=== PATIENT | male | born 1985 | race Caucasian/White ===

== ENCOUNTER → 2017-07-15 13:15 | Outpatient (CLI) | payer SELFPAY ==
--- NOTE | 2017-07-15 13:15 | VAS_PTH ---
PATIENT: THAI GODINEZ LOC: [facility] U#:[id number] AGE/SX: 39/M ROOM: RE07/15/[address]: Dr. Virgil Martin MD : [id number] BED: DIS: SPEC #: [id number] RECD: 07/15/17 17:03 STATUS: ANGEL SAGRARIO #: [id number] MARTHA: 07/15/17 13:[address]: Virgil Martin DEPT: SURGICAL PATHOLOGY RECD BY: Justus Ignacio Tissues: A - Vas deferens, NOS B - Vas deferens, NOS Procedures: Surgery Specimen Level II HEADER OPERATION: Vasectomy PRE-OP DIAGNOSIS: Sterilization TISSUE SUBMITTED: A ? Right vas deferens, B ? Left vas deferens MICROSCOPIC DIAGNOSIS A. Right vas deferens, vasectomy: Completely transected segment of vas deferens, no pathologic diagnosis. B. Left vas deferens, vasectomy: Completely transected segment of vas deferens, no pathologic diagnosis. SJ:raul 07/19/17 MICROSCOPIC DESCRIPTION Slides are reviewed. GROSS DESCRIPTION A - Received is one container designated right vas deferens. The specimen consists of a cylindrical segment of pink-gonzales soft tissue. The fragment measures 1.1 cm in length and 0.2 cm in maximum diameter. Serial sections do not reveal gross lesions. The specimen is serially sectioned and totally submitted in one cassette. B - Received is one container designated left vas deferens. The specimen consists of a cylindrical segment of pink-gonzales soft tissue. The fragment measures 1.5 cm in length and 0.2 cm in maximum diameter. Serial sections do not reveal gross lesions. The specimen is serially sectioned and totally submitted in one cassette. / AM:raul 07/18/17 TC:4 CPT: 96188 x2
== END ==
PROVIDERS: Visit Provider Surgery
DX: Z30.2 Encounter for sterilization (principal)
CPT/HCPCS: 88302

== ENCOUNTER 2018-03-22 20:11 | Observation (INO) | payer BC, SELFPAY ==
[2018-03-22] VITALS (7 sets, daily range): BP systolic 119–147; BP diastolic 63–98; PULSE 108–120; RESP 17–28; TEMP 36.1–38.2; O2SAT 92–99; BMI 29.7
--- NOTE | 2018-03-22 20:52 | ED.VISSUMM ---
- ER Visit Summary Date of Service: 03/22/18 Chief Complaint: [] Sore throat slight cough left-sided chest pain this morning History of Present Illness: The patient is a 32 M [] woke with the above this morning his left-sided chest discomfort intensified to where when he took a deep breath or moved he had pain he reports about 10 days ago he had similar symptoms but they resolved completely and then he woke again this morning with sore throat and the above symptoms. 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 Pulse ox 99 room air blood pressure 147/96 General, no distress resting comfortably HEENT is generally unremarkable The neck is supple no adenopathy Cardiovascular, regular rate and rhythm Lungs, clear bilateral, slightly diminished tones related to deep breathing causes pain to the left chest palpation of left chest also causes pain also if he turns or twists in a certain way he has pain to the left chest Abdomen, soft nontender Extremities, no clubbing cyanosis or edema Neurologic, awake alert answering questions appropriately moving all 4 extremities Test Results: [] Emergency Department Course and Treatment: [] ddx rather extensive would include pneumonia PE pneumothorax etc. screening labs EKG shows upsloping ST segments in V1 V2 with rapid downsloping of that segment sent to Dr. Ag who agrees there is no signs of obvious STEMI, no old EKGs available patient, Dr. Ag recommends admission for further evaluation of the above EKG changes has no known heart disease, patient's white count 14,000 his d-dimer and troponin are negative, his chest x-ray shows left-sided infiltrate he has been started on antibiotics for pneumonia spoke with the hospitalist will arrange for admission Treatment Plan: [] Disposition: [] Admit stable Impression: [] Left upper lobe pneumonia, abnormal EKG This note was generated with Jellyvision dictation software. It may contain incorrect words, spelling, and punctuation that were not noted in review of the chart prior to signing ED Disposition - Plan for ED Patient: Chief Complaint: Abd Pain Referrals: Care Physician,No Primary [Primary Care Provider] -
[2018-03-22] MEDS: Ondansetron 4 MG/2 ML Vial IV (21:03)
[2018-03-22] MEDS: 0.9% Normal Saline 1,000 ML 1000 ML IV ×2 (21:04)
[2018-03-22] MEDS: morphine 8 MG/ML Syringe IV (21:05)
[2018-03-22 21:10] LABS: Absolute Lymphocyte Count 0.92 X10^3/ul (0.83-4.51); Absolute Neutrophil Count 11.3 X10^3/uL (2.0-7.7); Basophil# 0.01 X10^3/uL; Basophil% 0.1 % (0-1); Eosinophil# 0.02 X10^3/uL; Eosinophils% 0.1 % (0-5); Hematocrit 46.2 % (40-54); Hemoglobin 15.9 g/dl (13.0-16.5); Lymphocyte # 0.92 X10^3/ul (4.0); Lymphocyte % 6.9 % (19-41); Mean Corp Hgb Conc 34.4 g/gl (32-36); Mean Corpuscular Hgb 29.7 pg (27.0-32.0); Mean Corpuscular Volume 86.2 fL (80-94); Mean Platelet Vol. 10.9 fl (6.2-12.0); Monocyte# 1.12 X10^3/uL; Monocyte% 8.4 % (0-10); Neutrophil # 11.26 X10^3/uL (2.7-7.7); Neutrophil % 84.4 % (47-70); POSITIVE COUNT NO; POSITIVE DIFFERENTIAL NO; POSITIVE MORPHOLOGY NO; Platelet Count 171 K/mm3 (150-450); RBC Distribution Width CV 12.9 % (11.6-14.6); RBC Distribution Width SD 40.6 fl (35.1-43.9); Red Blood Count 5.36 M/mm3 (4.6-6.2); White Blood Count 13.4 K/mm3 (4.4-11.0)
[2018-03-22] MEDS: Ipratropium/Albuterol Sulfate 3 ML AMPUL.NEB INHALATION (21:14)
[2018-03-22 21:18] LABS: D-Dimer Quantitative (DVT/PE) < 0.27 FEU/ug/m (0.27-0.49)
--- NOTE | 2018-03-22 21:22 | RAD_ITS ---
STUDY: X-RAY CHEST REASON FOR EXAM: Male, 32 years old. Chest pain TECHNIQUE: PA and lateral views of the chest. COMPARISON: None. 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 There is a left-sided infiltrate appearing to be in the superior segment of the left lower lobe. There are streaky fibrotic or atelectatic changes of the left lung base. There is no demonstrated pleural abnormality. Normal size heart. Normal mediastinum and jorje. Normal visualized pulmonary arteries. Normal visualized aortic arch and descending thoracic aorta. Normal visualized thoracic spine. Normal visualized ribs, clavicles, and shoulders. There is no demonstrated abnormality of the visualized soft tissue structures of the upper abdomen. RAD/Chest PA and Lateral IMPRESSION: Left-sided infiltrate appearing to be in the superior segment of the left lower lobe. Streaky fibrotic or atelectatic changes of the left lung base. Close interval plain film follow-up is recommended to assess for resolution. Electronically Signed: Jorgito Lezama MD at 21:54 EST , Service support ,
[2018-03-22 21:25] LABS: Anion Gap 8 (5-15); BUN 17 mg/dL (7-18); BUN/Creat Ratio 14.7 RATIO (10-20); Calcium,Total 8.7 mg/dL (8.5-10.1); Chloride 101 mmol/L (98-107); Creatinine, Serum 1.16 mg/dL (0.70-1.30); EST Glomerular Filtration Rate 77 mL/min (>60); Est Glom Filt Rate - Afr Amer 93 mL/min (>60); Estimated Creatinine Clearance 100.34 ml/min; Glucose 118 mg/dL (74-106); Potassium 4.1 mmol/L (3.5-5.1); Sodium Level 134 mmol/L (136-145)
[2018-03-22] MEDS: Ketorolac 30 MG/ML Syringe IV (21:48)
[2018-03-22] MEDS: Acetaminophen 500 MG Tablet 1000 MG PO (21:53)
[2018-03-22] MEDS: Ceftriaxone 1 GM/50 ML BAG IV (22:06)
[2018-03-22 22:33] LABS: Erythrocyte Sedimentation Rate 7 mm/hr (0-15)
--- NOTE | 2018-03-22 23:10 | HP.PCM_ITS ---
History of Present Illness Date of Admission: 03/22/18 Chief Complaint: Chest pain The patient is a 32 year old M with no significant past medical history. He was admitted through the ED on 03/22/2018 with complaint of left-sided pleuritic chest pain. Patient states he has had a recent upper respiratory tract infection and had a cyst shortness of breath and left-sided pleuritic chest pain with coughing. Symptoms abated but today after coming home from work he started having left-sided pleuritic chest pain and shortness of breath and so he decided to come into the ED. He denied any productive cough and denied any fever or chills, any abdominal pain, any diarrhea vomiting. He is never had such pain before in the past. In the ED, vitals were significant for temperature of 99.3 Fahrenheit, pulse rate of 116 and respiratory rate of 28. Chemistry showed sodium of 134 and CBC showed white cell count of 13.4. Chest x-ray showed a left upper lobe infiltrate. EKG done showed ST segment coving in V1 and V2. Showed no other acute ST changes though. Upon further inquiry, patient denied any history of any heart rhythm problems or any history of sudden in his family. Initial troponin was negative and d-dimer was also negative. He has been admitted to be managed for pneumonia based on EKG, of cardiology consult on account of possible Brugada syndrome. EKG findings. [] Past Medical History Medical History: Medical History (Last Reviewed 07/25/17 @ 13:44 by Charlotte Enriquez) Encounter for sterilization (Acute) Z30.2 Status post vasectomy Z98.52 Allergies No Known Allergies Allergy (Verified 03/22/18 20:12) Home Medications: Ambulatory Orders Medication Instructions Recorded NK 03/22/18 Surgical History: Surgical History (Last Reviewed 07/25/17 @ 13:44 by Charlotte Enriquez) S/P cholecystectomy (Acute) Z90.49 2005 S/P rhinoplasty (Acute) Z98.890 2004 Surgical History: cholecystectomy Psychiatric History: No pertinent psych hx Lives: Spouse/ Significant Other Smoking Status: Never smoker Alcohol: Occasional Drugs: None - *Family History Maternal Family History: Family History (Last Reviewed 07/25/17 @ 13:44 by Charlotte Enriquez) Father Testicular cancer History Items: No pertinent history Paternal Family History: Family History (Last Reviewed 07/25/17 @ 13:44 by Charlotte Enriquez) Father Testicular cancer History Items: No pertinent history Review of Systems Constitutional: Denies: Chills, Fever, Weight Change Eyes: Denies: Blurred vision HEENT: Denies: Head Aches, Sinus Congestion, Sinus Drainage Cardiovascular: Reports: Chest Pain. Denies: Chest Pressure, Chest Tightness, Edema, Orthopnea, Palpitations, Syncope Respiratory: Reports: Cough, Pleuritic Pain. Denies: Shortness of Breath, Shortness of breath at rest, Shortness of breath upon exertion, Sputum production, Wheezing Gastrointestinal: Denies: Abdominal Pain, Nausea, Vomiting Genitourinary: Denies: Dysuria Musculoskeletal: Denies: Joint Pain, Joint Tenderness Skin: Reports: Dryness Neurological: Denies: Numbness, Tingling, Focal weakness Psychiatric: Denies: Anxiety, Depression, Homicidal Ideations, Suicidal Ideations Hematologic/ Lymphatic: Denies: Easy Bruising, Easy Bleeding VTE Information - Inpt Only VTE Present on Admission: No VTE Pharm Prophylaxis ordered?: Yes - Physical Exam General: Alert, Oriented x3, Cooperative, No apparent distress HEENT: Atraumatic, PERRLA, EOMI, Normocephalic Oral: Moist Mucosa Neck: Supple, No JVD, Negative Carotid Bruits Lungs: Clear to auscultation, Normal air movement, No rhonchi, No wheeze, No rales Cardiovascular: Regular rate, Regular Rhythm, Normal S1, Normal S2, No murmurs Abdomen: Bowel Sounds Present, Soft, Non Tender, Non-Distended, No Hepato- splenomegaly Extremities: No clubbing, No cyanosis, No edema, Capillary Refill Less than 3 Seconds Skin: No rashes, No breakdown Musculoskeletal: No Tenderness to Palpation of Joints or Extremities Lymphatic: No Cervical, Supraclavicular, or Inguinal Adenopathy Neurological: Cranial nerves II-XII grossly intact, Neuro grossly intact, Motor Exam 5/5 strength throughout Psych/Mental Status: Normal Affect, Appropriate, Alert and oriented to time, place, person, mood and affect Vital Signs Temp Pulse Resp BP Pulse Ox 99.3 F H 116 H 28 H 126/77 H 94 03/22/18 23:00 03/22/18 23:00 03/22/18 23:00 03/22/18 23:00 03/22/18 23:00 Oxygen Delivery Method Room Air Weight: 219 lb 5.759 oz Body Mass Index (BMI) 29.7 Laboratory Tests Past 24 Hrs 03/22/18 03/22/18 03/22/18 20:55 20:55 20:55 WBC 13.4 H RBC 5.36 Hgb 15.9 Hct 46.2 MCV 86.2 MCH 29.7 MCHC 34.4 RDW 12.9 RDW Differential 40.6 Plt Count 171 MPV 10.9 Immature Gran % (Auto) 0.100 Neut % (Auto) 84.4 H Lymph % (Auto) 6.9 L Gilliam % (Auto) 8.4 Eos % (Auto) 0.1 Baso % (Auto) 0.1 Absolute Neuts (auto) 11.3 H Absolute Lymphs (auto) 0.92 Total Counted Not Reportable ESR D-Dimer Quant (PE/DVT) < 0.27 L Sodium 134 L Potassium 4.1 Chloride 101 Carbon Dioxide 25.0 Anion Gap 8 BUN 17 Creatinine 1.16 Estim Creat Clear Calc 100.34 Est GFR (MDRD) Af Amer 93 Est GFR (MDRD) Non-Af 77 BUN/Creatinine Ratio 14.7 Glucose 118 H Calcium 8.7 Troponin I < 0.015 03/22/18 20:55 WBC RBC Hgb Hct MCV MCH MCHC RDW RDW Differential Plt Count MPV Immature Gran % (Auto) Neut % (Auto) Lymph % (Auto) Gilliam % (Auto) Eos % (Auto) Baso % (Auto) Absolute Neuts (auto) Absolute Lymphs (auto) Total Counted ESR 7 D-Dimer Quant (PE/DVT) Sodium Potassium Chloride Carbon Dioxide Anion Gap BUN Creatinine Estim Creat Clear Calc Est GFR (MDRD) Af Amer Est GFR (MDRD) Non-Af BUN/Creatinine Ratio Glucose Calcium Troponin I Diagnostic Data Chest X-Ray 03/22/18 21:22 IMPRESSION: Left-sided infiltrate appearing to be in the superior segment of the left lower lobe. Streaky fibrotic or atelectatic changes of the left lung base. Close interval plain film follow-up is recommended to assess for resolution. Electronically Signed: Jorgito Lezama MD at 21:54 EST , Service support , Assessment/Plan All Active Problems (Last Reviewed 07/25/17 @ 13:44 by Charlotte Enriquez) Encounter for sterilization (Acute) S/P cholecystectomy (Acute) S/P rhinoplasty (Acute) 32 y/op male presenting with a complaint of chest pain 1. Sepsis due to community acquired pneumonia * had URTI symptoms about 10 days ago, and had persistent left sided chest pain * CXR shoed left upper lobe infiltrate * EKG showed upward coving of V1 and V2; * white cell count is 13.4 * SIRS criteria is 3/4 (tachycardia, tachypnea and leucocytosis) * admit to PCU with telemetry * give IV ceftriaxone and azithromycin * hydrate with IVF NS @ 125cc/hr * 2. Abnormal EKG suspicious for Brugada syndrome * EKG showed coving in V1 and V2 * denies any history of arrhythmia or sudden in his family * consult cardiology for further evaluation * DVT prophylaxis: heparin Code Visit OBSV E&M: 52949 Initial observation care L3
[2018-03-22 23:30] LABS: Magnesium 1.9 mg/dL (1.6-2.6)
[2018-03-23] VITALS (12 sets, daily range): BP systolic 112–127; BP diastolic 59–83; PULSE 76–102; RESP 15–19; TEMP 36.5–37.2; O2SAT 92–99; BMI 29.2
[2018-03-23] MEDS: 0.9% Normal Saline 1,000 ML 150 ML IV ×2 (01:36→14:26)
[2018-03-23 06:45] LABS: Basophil# 0.02 X10^3/uL; Basophil% 0.2 % (0-1); Eosinophil# 0.02 X10^3/uL; Eosinophils% 0.2 % (0-5); Hematocrit 45.8 % (40-54); Hemoglobin 15.6 g/dl (13.0-16.5); Lymphocyte % 9.8 % (19-41); Mean Corp Hgb Conc 34.1 g/gl (32-36); Mean Corpuscular Hgb 29.6 pg (27.0-32.0); Mean Corpuscular Volume 86.9 fL (80-94); Mean Platelet Vol. 11.8 fl (6.2-12.0); Monocyte% 11.8 % (0-10); Neutrophil # 7.95 X10^3/uL (2.7-7.7); Neutrophil % 77.8 % (47-70); Platelet Count 137 K/mm3 (150-450); RBC Distribution Width CV 13.2 % (11.6-14.6); RBC Distribution Width SD 41.3 fl (35.1-43.9); Red Blood Count 5.27 M/mm3 (4.6-6.2); White Blood Count 10.2 K/mm3 (4.4-11.0)
[2018-03-23 06:55] LABS: Anion Gap 7 (5-15); BUN 11 mg/dL (7-18); BUN/Creat Ratio 10.4 RATIO (10-20); Calcium,Total 7.8 mg/dL (8.5-10.1); Chloride 108 mmol/L (98-107); Creatinine, Serum 1.06 mg/dL (0.70-1.30); EST Glomerular Filtration Rate 86 mL/min (>60); Est Glom Filt Rate - Afr Amer 104 mL/min (>60); Estimated Creatinine Clearance 108.79 ml/min; Glucose 88 mg/dL (74-106); Potassium 4.1 mmol/L (3.5-5.1); Sodium Level 140 mmol/L (136-145)
[2018-03-23 06:56] LABS: POSITIVE COUNT NO; POSITIVE DIFFERENTIAL NO; POSITIVE MORPHOLOGY NO
--- NOTE | 2018-03-23 07:38 | EKG12_ITS ---
Test Reason : DR REQUEST Blood Pressure : / mmHG Vent. Rate : 089 BPM Atrial Rate : 089 BPM P-R Int : 144 ms QRS Dur : 108 ms QT Int : 346 ms P-R-T Axes : 026 -25 035 degrees QTc Int : 420 ms Normal sinus rhythm Incomplete right bundle branch block Inferior infarct , age undetermined Abnormal ECG When compared with ECG of 22-MAR-2018 21:07, MANUAL COMPARISON REQUIRED, DATA IS UNCONFIRMED Confirmed by DEBBIE SALAZAR ([id number]), web content editor AZALEA CAMARGO ([id number]) on 03/29/2018 2:55:32 PM Referred By: Liane Juares Confirmed By:DEBBIE SALAZAR
--- NOTE | 2018-03-23 07:41 | NURSING ---
This RN communicated to dayshift RN that MD wants ECHO ordered, but MD did not specify whether to use contrast or not. Alberto RN to clarify order with MD and order ECHO.
--- NOTE | 2018-03-23 08:19 | ECHOD_ITS ---
Reason For Study: ABN EKG Procedure This was a 2D Doppler, Color Flow transthoracic echocardiogram. Exam performed portable in patient room. Left Ventricle Normal size and thickness. The estimated ejection fraction is 65 %. Normal diastology for age. No regional wall motion abnormalities noted. Right Ventricle Mildly dilated right ventricle. Normal systolic function. Atria Normal left atrium. Normal right atrium. Prominent eustachian valve. Normal atrial septum. Mitral Valve The mitral valve is structurally normal. No prolapse or stenosis seen. Trivial mitral valve insufficiency. Tricuspid Valve Normal tricuspid valve. Trivial tricuspid valve insufficiency. Right ventricular systolic pressure estimated to be 17 mmHg. Aortic Valve Normal aortic valve. Trisinus/trileaflet aortic valve. Pulmonic Valve Normal pulmonic valve. Trivial pulmonic valve insufficiency. Great Vessels Normal aortic root. Normal arch. Normal inferior vena cava. Inferior vena cava collapse with sniff. Pericardium/Pleural No pericardial effusion. MMode/2D Measurements & Calculations LVIDd: 5.3 cm IVSd: 0.90 cm Ao root diam: 3.0 cm LVIDs: 3.3 cm LVPWd: 0.95 cm RVDd: 4.0 cm FS: 37.0 % LAV(MOD-bp): 49.4 ml LA A4 area: 17.4 cm2 LA dimension(2D): 3.9 cm LAV(MOD-bp) Indexed: 22.5 ml/m2 LAV(MOD-sp2): 53.1 ml LAV(MOD-sp4): 44.5 ml RA A4 area: 14.5 cm2 Time Measurements MV dec time: 0.26 sec Doppler Measurements & Calculations MV E max darnell: 87.4 cm/sec Lat Peak E' Darnell: 15.7 cm/sec Med Peak E' Darnell: 13.8 cm/sec MV A max darnell: 45.0 cm/sec E/E' lat: 5.6 E/E' med: 6.3 MV E/A: 1.9 Ao V2 max: 135.4 cm/sec LV V1 max: 106.2 cm/sec PA V2 max: 88.4 cm/sec Ao max P.3 mmHg LV V1 max P.5 mmHg PI end-d darnell: 135.0 cm/sec TR max darnell: 175.1 cm/sec TR max P.3 mmHg Interpretation Summary The estimated ejection fraction is 65 %. Normal diastology for age. Mildly dilated right ventricle. Trivial mitral valve insufficiency. Trivial tricuspid valve insufficiency. Right ventricular systolic pressure estimated to be 17 mmHg. There is no comparison study available. Ordering Physician: John Ag Referring Physician: Liane Juares Performed By: Angela Culver, CARMENCITA, RVT
[2018-03-23] MEDS: Ibuprofen 600 MG Tablet PO ×2 (08:53→14:34)
[2018-03-23] MEDS: Enoxaparin 40 MG/0.4 ML Syringe SC (08:53)
--- NOTE | 2018-03-23 09:27 | PCM.CONS.C ---
Problem List (1) Pleuritic chest pain Status: Acute (2) Abnormal EKG Status: Acute Reason for Consult Date of Consultation: 03/23/18 Reason for Consultation: Pleuritic chest pain, abnormal EKG History of Present Illness: The patient is a 33 year old M, with no previous cardiac history, lifelong non-smoker, nonhypertensive, no evidence of hypercholesterolemia, no family history of premature coronary artery disease or sudden cardiac , who is doing fairly well up until early March 2018 when he developed a sore throat as well as significant body aches which lasted for several days. When they did not improve he went to urgent care locally, and reportedly had a negative flu and strep test. Patient was told to convalesce at home. Subsequent to that he developed productive cough and had been coughing somewhat excessively over the last week or so, and his body aches resolved. Yesterday in the morning, the patient developed recurrent feeling of unwellness with significant chills requiring him to wear his coat throughout the office. He works as an electrical and instrument engineer. Later that day he developed sharp pleuritic inspiratory left-sided chest pain which felt as though he had cracked 1 of his ribs. This appeared to only occur with inspiration, and resolved with expiration. The patient thought it was similar to gastric distention when he drinks soda pop, however did not resolved. The patient sought medical attention in the emergency room at [facility] last evening where an EKG was performed. This demonstrated normal sinus rhythm with J-point elevation in V1 and V2 only with no reciprocal changes. I reviewed the EKG, and his initial troponin was negative. Patient was treated with morphine and his pain markedly improved. Chest x-ray performed in the ER showed a possible infiltrate in the superior portion of the left lower lobe with possible atelectatic changes in the left lung as well. Patient was diagnosed with pneumonia and given broad-spectrum IV antibiotics. This morning the EKG showed normal sinus rhythm with incomplete right bundle branch block and resolution of the J-point elevation. His second troponin is negative. His sed rate is 7 which is normal. D-dimer is negative as well. On further history, prior to his flulike illness, he denied any chest pain, angina, shortness of breath or dyspnea on exertion. He reports his last use of cocaine was around 6 years ago, and was not a heavy user. He used to use THC, but has not used that in years as well. He denies any other illicit use drugs. Echo is pending. [] Past Medical History Allergies/Adverse Reactions: Allergies No Known Allergies Allergy (Verified 03/22/18 20:12) Home Medications: Ambulatory Orders Medication Instructions Recorded NK 03/22/18 Surgical History: cholecystectomy Psychiatric History: No pertinent psych hx - *Family History Maternal Family History: Family History (Last Reviewed 07/25/17 @ 13:44 by Charlotte Enriquez) Father Testicular cancer History Items: No pertinent history Paternal Family History: Family History (Last Reviewed 07/25/17 @ 13:44 by Charlotte Enriquez) Father Testicular cancer History Items: No pertinent history Lives: Spouse/ Significant Other Smoking Status: Never smoker Tobacco Use: Non-smoker Alcohol: Occasional Drugs: None Review of Systems - Review of Systems General: Denies: Fever, Night Sweats, Fatigue Cardiovascular: Denies: Chest Discomfort, Shortness of Breath, Orthopnea, PND, Peripheral Edema, Palpitations, Lightheadedness, Dizziness, Near Syncope, Syncope Respiratory: Reports: Sputum Production, Pleurtic Chest Pain. Denies: Cough, Hemoptysis Gastrointestinal: Denies: Hematemesis, Hematochezia, Melena Genitourinary: Denies: Dysuria, Hematuria Skin: Denies: Rash Subjectve: Patient in no acute distress, resting comfortably. Mild pleuritic chest pain with deep inspiration. Objective: Vital Signs Temp Pulse Resp BP Pulse Ox 98.7 F 88 18 127/83 H 99 03/23/18 08:49 03/23/18 08:49 03/23/18 08:49 03/23/18 08:49 03/23/18 08:49 Oxygen Delivery Method Room Air Weight: 215 lb 9.793 oz Body Mass Index (BMI) 29.2 Intake and Output for Last 24 Hours 03/21/18 03/22/18 03/23/18 23:59 23:59 23:59 Intake Total 310 / 310 Output Total 0 / 0 Balance 310 / 310 General: Awake, Alert, Oriented x 3 HEENT: PERRL, EOMI, Sclera Non Icteric Neck: Supple, Good ROM, No Lymph Node Enlargement Lungs: Clear to auscultation Cardiovascular: Regular Rhythm, Normal S1, Normal S2, No Murmurs, No Rubs, No Gallops Vascular: No Carotid Bruits, Normal Femoral Pulses, Normal Radial Pulses, Normal Dorsalis Pedal Pulse, Normal Posterior Tibial Pulses Abdomen: Bowel Sounds Present, Soft, Non Tender, No HSM, No Organomegaly Extremities: No Cyanosis, No Clubbing, No edema Neurological: No Focal Motor or Sensory Deficit 03/22/18 20:55: WBC 13.4 H, RBC 5.36, Hgb 15.9, Hct 46.2, MCV 86.2, MCH 29.7, MCHC 34.4, RDW 12.9, RDW Differential 40.6, Plt Count 171, MPV 10.9, Immature Gran % (Auto) 0.100, Neut % (Auto) 84.4 H, Lymph % (Auto) 6.9 L, Sutter % (Auto) 8.4, Eos % (Auto) 0.1, Baso % (Auto) 0.1, Absolute Neuts (auto) 11.3 H, Total Counted Not Reportable 03/22/18 20:55: Sodium 134 L, Potassium 4.1, Chloride 101, Carbon Dioxide 25.0, Anion Gap 8, BUN 17, Creatinine 1.16, Est GFR (MDRD) Af Amer 93, Est GFR (MDRD) Non-Af 77, BUN/Creatinine Ratio 14.7, Glucose 118 H, Calcium 8.7, Troponin I < 0.015 03/22/18 20:55: D-Dimer Quant (PE/DVT) < 0.27 L 03/22/18 20:55: Magnesium 1.9 03/23/18 05:37: WBC 10.2, RBC 5.27, Hgb 15.6, Hct 45.8, MCV 86.9, MCH 29.6, MCHC 34.1, RDW 13.2, RDW Differential 41.3, Plt Count 137 L, MPV 11.8, Immature Gran % (Auto) 0.200, Neut % (Auto) 77.8 H, Lymph % (Auto) 9.8 L, Sutter % (Auto) 11.8 H, Eos % (Auto) 0.2, Baso % (Auto) 0.2, Absolute Neuts (auto) 8.0 H, Total Counted Not Reportable 03/23/18 05:37: Sodium 140, Potassium 4.1, Chloride 108 H, Carbon Dioxide 25.0, Anion Gap 7, BUN 11, Creatinine 1.06, Est GFR (MDRD) Af Amer 104, Est GFR (MDRD) Non-Af 86, BUN/Creatinine Ratio 10.4, Glucose 88, Calcium 7.8 L 03/23/18 05:37: Troponin I < 0.015 Rhythm: EKG: ECHO: Stress Test: Cardiac Cath: PCI: CT Surgery: Holter monitor: EPS: PPM: CXR: Chest CT Scan: Assessment/Plan 1. Pleuritic type chest pain: Patient has evidence of possible pleuritic type chest pain as a result of his recent flulike illness as well as a possible infiltrate in his left lung on chest x-ray. Patient's pleuritic pain has markedly improved with morphine as well as IV antibiotics as well as NSAIDs. Have recommended that he undergo a 2D echo with Doppler to evaluate his LV function and pericardial space. Patient has no overt pleural effusion seen on chest x-ray. Troponins are negative x2 and his sed rate is also within normal limits. Have recommended the patient be initiated on ibuprofen 600 mg p.o. every 6 hours for pleuritic type inflammation. He may require 1 week of this medication to resolve his pleuritic symptoms. Do not believe the patient requires a stress test at this time given his lack of overt risk factors and negative troponins. Patient had no symptoms prior to his flulike illness. I would recommend a repeat chest x-ray in 4-6 weeks time to make sure that his infiltrate and density have resolved completely in his left lung. In addition his d-dimer was negative, so it is unlikely the patient had a pulmonary embolism. 2. Hyperlipidemia: Recommend obtaining a fasting profile to complete his cardiovascular assessment. 3. Illicit drug use: The patient has had no illicit drug use per the patient over the last 6 years. Does not appear the patient had drug induced coronary vasospasm as of this admission. 4. Thank you very much for the opportunity to precipitate in the cardiac care of your patient. Consultation time took place between 845 and 9:15 AM. Code Visit Inpatient E&M: 36914 Init Hosp L2
--- NOTE | 2018-03-23 15:48 | PCM.DC ---
- Discharge Diagnoses Current Active Problems: Current Active and Chronic Problems (Last Reviewed 07/25/17 @ 13:44 by Charlotte Enriquez) Pleuritic chest pain (Acute) Abnormal EKG (Acute) You will use the following diet at home:: No restrictions Discharge Activity: Return to Normal Activity Call your doctor if you observe: Shortness of breath, Dizziness, Fainting spells, Chest pain, Increased palpitations (irregular heartbeat) Additional Instructions: Recommend repeat chest x-ray in 4-6 weeks. Please establish with PCP if you do not already have one. Allergies/Adverse Reactions: Allergies No Known Allergies Allergy (Verified 03/22/18 20:12) Medications to take at Discharge Amox/Clavulanate Tablet [Augmentin Tablet] 875 mg PO Q12H #14 tablet 03/23/18 Ibuprofen [Motrin] 600 mg PO Q6 #56 tablet 03/23/18 The following prescriptions were given: Amox/Clavulanate Tablet [Augmentin Tablet] 875 mg PO Q12H #14 tablet Ibuprofen [Motrin] 600 mg PO Q6 #56 tablet Primary Care Physician: Care Physician,No Primary [Primary Care Provider] - Please follow up with your Primary Care Physician in: 1 Week Test Results: Test results from this visit will be discussed in further detail at your follow-up appointment, if applicable. Proposed Discharge Date: 03/23/18
--- NOTE | 2018-03-23 15:53 | DCINST_ITS ---
- Discharge Diagnoses Current Active Problems: Current Active and Chronic Problems (Last Reviewed 07/25/17 @ 13:44 by Charlotte Enriquez) Pleuritic chest pain (Acute) Abnormal EKG (Acute) You will use the following diet at home:: No restrictions Discharge Activity: Return to Normal Activity Call your doctor if you observe: Shortness of breath, Dizziness, Fainting spells, Chest pain, Increased palpitations (irregular heartbeat) Additional Instructions: Recommend repeat chest x-ray in 4-6 weeks. Please establish with PCP if you do not already have one. Allergies/Adverse Reactions: Allergies No Known Allergies Allergy (Verified 03/22/18 20:12) Medications to take at Discharge Amox/Clavulanate Tablet [Augmentin Tablet] 875 mg PO Q12H #14 tablet 03/23/18 Ibuprofen [Motrin] 600 mg PO Q6 #56 tablet 03/23/18 The following prescriptions were given: Amox/Clavulanate Tablet [Augmentin Tablet] 875 mg PO Q12H #14 tablet Ibuprofen [Motrin] 600 mg PO Q6 #56 tablet Primary Care Physician: Care Physician,No Primary [Primary Care Provider] - Please follow up with your Primary Care Physician in: 1 Week Test Results: Test results from this visit will be discussed in further detail at your follow- up appointment, if applicable. Proposed Discharge Date: 03/23/18
--- NOTE | 2018-03-23 15:54 | PCM.DC.SUM ---
<Damari Enriquez - Last Filed: 03/23/18 16:49> Discharge Date and Diagnosis Date of Admission: 03/22/18 Date of Discharge: 03/23/18 - Primary Discharge Diagnosis Active and Suspected Problems (Last Reviewed 07/25/17 @ 13:44 by Charlotte Enriquez) 1. Acute community-acquired left upper lobe pneumonia 2. Pleuritic chest pain, secondary to #1 3. Abnormal EKG Hospital Course and Treatment Imaging Results: 03/23/18 08:19 Echo Complete [ECHO] Routine Dr. Ag- Cardiology Operations: None Procedures: 2-D Echocardiogram Summary of Care Provided: The patient is a 33 year old M admitted 03/22/2018 due to chest pain. He has no prior past medical history. Patient had recent upper respiratory tract infection and has since developed left-sided pleuritic chest pain, worse with coughing. EKG on admission with J-point elevation in V1 and V2, no reciprocal changes. Repeat EKG this morning with improvement. Chest x-ray on admission showed a left-sided infiltrate. Patient with mild leukocytosis which resolved with IV antibiotics. D-dimer negative. Troponin negative x2. Electrolytes within normal limits. Patient will be discharged on Augmentin 875 mg p.o. twice daily for 7 days. Recommend repeat chest x-ray in 4-6 weeks by primary care physician to ensure infiltrate has resolved. Recommend ibuprofen 600 mg every 6 hours for pleuritic chest pain, suspected secondary to underlying pneumonia. Echocardiogram completed and will be reviewed prior to discharge. General: Alert, Oriented x3, Cooperative, No apparent distress HEENT: Atraumatic, PERRLA, EOMI, Normocephalic Oral: Moist Mucosa Neck: Supple, No JVD, Negative Carotid Bruits Lungs: Clear to auscultation, Normal air movement Cardiovascular: Regular rate, Regular Rhythm, Normal S1, Normal S2, No murmurs Abdomen: Bowel Sounds Present, Soft, Non Tender, Non-Distended Extremities: No clubbing, No cyanosis, No edema, Capillary Refill Less than 3 Seconds Skin: No rashes, No breakdown Musculoskeletal: No Tenderness to Palpation of Joints or Extremities Lymphatic: No Cervical, Supraclavicular, or Inguinal Adenopathy Neurological: Cranial nerves II-XII grossly intact, Neuro grossly intact Psych/Mental Status: Normal Affect, Appropriate Patient seen and examined prior to discharge. Physical assessment as noted above. Patient is stable for discharge with follow up recommendations as noted above. This patient was seen by RENA Ashley under the supervision of Dr. Abel. - Physical Exam Vital Signs Temp Pulse Resp BP Pulse Ox 97.7 F L 78 19 H 120/77 98 03/23/18 14:37 03/23/18 14:37 03/23/18 14:37 03/23/18 14:37 03/23/18 14:37 Oxygen Delivery Method Room Air Weight: 215 lb 9.793 oz Body Mass Index (BMI) 29.2 Intake and Output for Last 24 Hours 03/21/18 03/22/18 03/23/18 23:59 23:59 23:59 Intake Total 1593 / 1593 Output Total 0 / 0 Balance 1593 / 1593 Microbiology Past 72 Hours 03/23/18 11:25 Streptococcus pneumoniae Antigen (M - Final Urine, Clean Catch 03/23/18 11:25 Legionella Antigen - Final Urine, Clean Catch Laboratory Tests Past 24 Hrs 03/22/18 03/22/18 03/22/18 20:55 20:55 20:55 WBC 13.4 H RBC 5.36 Hgb 15.9 Hct 46.2 MCV 86.2 MCH 29.7 MCHC 34.4 RDW 12.9 RDW Differential 40.6 Plt Count 171 MPV 10.9 Immature Gran % (Auto) 0.100 Neut % (Auto) 84.4 H Lymph % (Auto) 6.9 L [place] % (Auto) 8.4 Eos % (Auto) 0.1 Baso % (Auto) 0.1 Absolute Neuts (auto) 11.3 H Absolute Lymphs (auto) 0.92 Total Counted Not Reportable ESR D-Dimer Quant (PE/DVT) < 0.27 L Sodium 134 L Potassium 4.1 Chloride 101 Carbon Dioxide 25.0 Anion Gap 8 BUN 17 Creatinine 1.16 Estim Creat Clear Calc 100.34 Est GFR (MDRD) Af Amer 93 Est GFR (MDRD) Non-Af 77 BUN/Creatinine Ratio 14.7 Glucose 118 H Calcium 8.7 Magnesium Troponin I < 0.015 03/22/18 03/22/18 03/23/18 20:55 20:55 05:37 WBC 10.2 RBC 5.27 Hgb 15.6 Hct 45.8 MCV 86.9 MCH 29.6 MCHC 34.1 RDW 13.2 RDW Differential 41.3 Plt Count 137 L MPV 11.8 Immature Gran % (Auto) 0.200 Neut % (Auto) 77.8 H Lymph % (Auto) 9.8 L [place] % (Auto) 11.8 H Eos % (Auto) 0.2 Baso % (Auto) 0.2 Absolute Neuts (auto) 8.0 H Absolute Lymphs (auto) 1.00 Total Counted Not Reportable ESR 7 D-Dimer Quant (PE/DVT) Sodium Potassium Chloride Carbon Dioxide Anion Gap BUN Creatinine Estim Creat Clear Calc Est GFR (MDRD) Af Amer Est GFR (MDRD) Non-Af BUN/Creatinine Ratio Glucose Calcium Magnesium 1.9 Troponin I 03/23/18 03/23/18 05:37 05:37 WBC RBC Hgb Hct MCV MCH MCHC RDW RDW Differential Plt Count MPV Immature Gran % (Auto) Neut % (Auto) Lymph % (Auto) [place] % (Auto) Eos % (Auto) Baso % (Auto) Absolute Neuts (auto) Absolute Lymphs (auto) Total Counted ESR D-Dimer Quant (PE/DVT) Sodium 140 Potassium 4.1 Chloride 108 H Carbon Dioxide 25.0 Anion Gap 7 BUN 11 Creatinine 1.06 Estim Creat Clear Calc 108.79 Est GFR (MDRD) Af Amer 104 Est GFR (MDRD) Non-Af 86 BUN/Creatinine Ratio 10.4 Glucose 88 Calcium 7.8 L Magnesium Troponin I < 0.015 Discharge Diet: No Restrictions Discharge Activity: Return to Normal Activity Call your doctor if you observe: Shortness of breath, Dizziness, Fainting spells, Chest pain, Increased palpitations (irregular heartbeat) Home Medications: Medications to take at Discharge Amox/Clavulanate Tablet [Augmentin Tablet] 875 mg PO Q12H #14 tablet 03/23/18 Ibuprofen [Motrin] 600 mg PO Q6 #56 tablet 03/23/18 Following Prescrptions Were Given to Patient: Amox/Clavulanate Tablet [Augmentin Tablet] 875 mg PO Q12H #14 tablet Ibuprofen [Motrin] 600 mg PO Q6 #56 tablet Primary Care Physician: Care Physician,No Primary [Primary Care Provider] - Please follow up with your Primary Care Physician in: 1 Week Disposition: Home Minutes spent on discharge:: 35 Patient Condition:: Stable Medical Necessity - Tobacco Use Smoking Status: Never smoker Tobacco Use: Non-smoker Meaningful Use Info Meaningful Use Diagnoses (Choose all that apply): None applicable <Sunny Abel - Last Filed: 03/23/18 17:11> Hospital Course and Treatment Imaging Results: 03/23/18 08:19 Echo Complete [ECHO] Routine Summary of Care Provided: This patient was seen in conjunction with Damari POP. I have independently interviewed and examined the patient and reviewed pertinent history, examination findings, laboratory and plan of management. I have reviewed the note and agree with the documented findings with the few additional points. In brief, patient is admitted for left lateral chest pain, pleuritic in nature worse with deep breathing and coughing. He had flulike symptoms in early part of March with nasal congestion, postnasal drip but is resolved now. EKG findings with J-point elevation V1 V2 but no respiratory changes. Chest x-ray showed left-sided infiltrate in the superior segment of left lower lobe. Patient was seen by motor vehicle inspector and does not think chest pain is cardiac in nature. Echo reported as EF 65% with normal diastolic function. Mildly dilated RV. RVSP 17 mm H is mostly normal valvular anatomy. Echo showed no pericardial effusion. She has been discharged on Augmentin and Motrin 600 mg q. 6 hourly for pleurisy. Will need repeat chest x-ray in 4-6 weeks. Discharge medication reconciliation done. Discharge follow-up which was completed. Discharge medications and follow-up discussed with the patient. I have discussed my assessment with Damari POP and orders have been reviewed. [] Clinical Impression(s) from Imaging Studies Chest X-Ray 03/22/18 21:22 IMPRESSION: Left-sided infiltrate appearing to be in the superior segment of the left lower lobe. Streaky fibrotic or atelectatic changes of the left lung base. Close interval plain film follow-up is recommended to assess for resolution. - Physical Exam General: Alert, Oriented x3, Cooperative HEENT: Atraumatic, PERRLA, EOMI, Normocephalic Neck: Supple, No JVD, Negative Carotid Bruits Lungs: Clear to auscultation, Normal air movement, No rhonchi, No wheeze, No rales Cardiovascular: Regular rate, Regular Rhythm, Normal S1, Normal S2, No murmurs, - - No reproducible chest tenderness Abdomen: Bowel Sounds Present, Soft, Non Tender, Non-Distended Extremities: No edema, Capillary Refill Less than 3 Seconds Skin: No rashes, No breakdown Musculoskeletal: No Tenderness to Palpation of Joints or Extremities Neurological: Cranial nerves II-XII grossly intact, Deep Tendon Reflexes 2+/4 and Symmetrical, Neuro grossly intact, Motor Exam 5/5 strength throughout Psych/Mental Status: Normal Affect, Appropriate Vital Signs Temp Pulse Resp BP Pulse Ox 97.7 F L 76 19 H 120/77 98 03/23/18 14:37 03/23/18 15:35 03/23/18 14:37 03/23/18 14:37 03/23/18 14:37 Oxygen Delivery Method Room Air Weight: 215 lb 9.793 oz Body Mass Index (BMI) 29.2 Intake and Output for Last 24 Hours 03/21/18 03/22/18 03/23/18 23:59 23:59 23:59 Intake Total 1593 / 1593 Output Total 0 / 0 Balance 1593 / 1593 Microbiology Past 72 Hours 03/23/18 11:25 Streptococcus pneumoniae Antigen (M - Final Urine, Clean Catch 03/23/18 11:25 Legionella Antigen - Final Urine, Clean Catch Laboratory Tests Past 24 Hrs 03/22/18 03/22/18 03/22/18 20:55 20:55 20:55 WBC 13.4 H RBC 5.36 Hgb 15.9 Hct 46.2 MCV 86.2 MCH 29.7 MCHC 34.4 RDW 12.9 RDW Differential 40.6 Plt Count 171 MPV 10.9 Immature Gran % (Auto) 0.100 Neut % (Auto) 84.4 H Lymph % (Auto) 6.9 L [place] % (Auto) 8.4 Eos % (Auto) 0.1 Baso % (Auto) 0.1 Absolute Neuts (auto) 11.3 H Absolute Lymphs (auto) 0.92 Total Counted Not Reportable ESR D-Dimer Quant (PE/DVT) < 0.27 L Sodium 134 L Potassium 4.1 Chloride 101 Carbon Dioxide 25.0 Anion Gap 8 BUN 17 Creatinine 1.16 Estim Creat Clear Calc 100.34 Est GFR (MDRD) Af Amer 93 Est GFR (MDRD) Non-Af 77 BUN/Creatinine Ratio 14.7 Glucose 118 H Calcium 8.7 Magnesium Troponin I < 0.015 03/22/18 03/22/18 03/23/18 20:55 20:55 05:37 WBC 10.2 RBC 5.27 Hgb 15.6 Hct 45.8 MCV 86.9 MCH 29.6 MCHC 34.1 RDW 13.2 RDW Differential 41.3 Plt Count 137 L MPV 11.8 Immature Gran % (Auto) 0.200 Neut % (Auto) 77.8 H Lymph % (Auto) 9.8 L [place] % (Auto) 11.8 H Eos % (Auto) 0.2 Baso % (Auto) 0.2 Absolute Neuts (auto) 8.0 H Absolute Lymphs (auto) 1.00 Total Counted Not Reportable ESR 7 D-Dimer Quant (PE/DVT) Sodium Potassium Chloride Carbon Dioxide Anion Gap BUN Creatinine Estim Creat Clear Calc Est GFR (MDRD) Af Amer Est GFR (MDRD) Non-Af BUN/Creatinine Ratio Glucose Calcium Magnesium 1.9 Troponin I 03/23/18 03/23/18 05:37 05:37 WBC RBC Hgb Hct MCV MCH MCHC RDW RDW Differential Plt Count MPV Immature Gran % (Auto) Neut % (Auto) Lymph % (Auto) [place] % (Auto) Eos % (Auto) Baso % (Auto) Absolute Neuts (auto) Absolute Lymphs (auto) Total Counted ESR D-Dimer Quant (PE/DVT) Sodium 140 Potassium 4.1 Chloride 108 H Carbon Dioxide 25.0 Anion Gap 7 BUN 11 Creatinine 1.06 Estim Creat Clear Calc 108.79 Est GFR (MDRD) Af Amer 104 Est GFR (MDRD) Non-Af 86 BUN/Creatinine Ratio 10.4 Glucose 88 Calcium 7.8 L Magnesium Troponin I < 0.015 Code Visit OBSV E&M: [id number] Observation care discharge
--- NOTE | 2018-03-23 15:59 | DS.PCM_ITS ---
Addendum entered and electronically signed by RENA Ashley 03/23/18 16:52: Code Visit EKG reviewed with Dr. Ag. Possible Brugada syndrome. Patient will follow-up with Dr. Ag in 1 month for repeat EKG with plans on referral to Dr. Campbell, [facility] dope edger for further evaluation. Addendum entered and electronically signed by RENA Ashley 03/23/18 16:26: Code Visit Echocardiogram showed an EF of 65%, trivial mitral valve insufficiency, trivial tricuspid valve insufficiency, RVSP estimated to be 17 mmHg. No pericardial effusion. Original Note: <Damari Enriquez - Last Filed: 03/23/18 16:49> Discharge Date and Diagnosis Date of Admission: 03/22/18 Date of Discharge: 03/23/18 - Primary Discharge Diagnosis Active and Suspected Problems (Last Reviewed 07/25/17 @ 13:44 by Charlotte Enriquez) 1. Acute community-acquired left upper lobe pneumonia 2. Pleuritic chest pain, secondary to #1 3. Abnormal EKG Hospital Course and Treatment Imaging Results: 03/23/18 08:19 Echo Complete [ECHO] Routine Dr. Ag- Cardiology Operations: None Procedures: 2-D Echocardiogram Summary of Care Provided: The patient is a 33 year old M admitted 03/22/2018 due to chest pain. He has no prior past medical history. Patient had recent upper respiratory tract infection and has since developed left-sided pleuritic chest pain, worse with coughing. EKG on admission with J-point elevation in V1 and V2, no reciprocal changes. Repeat EKG this morning with improvement. Chest x-ray on admission showed a left-sided infiltrate. Patient with mild leukocytosis which resolved with IV antibiotics. D-dimer negative. Troponin negative x2. Electrolytes within normal limits. Patient will be discharged on Augmentin 875 mg p.o. twice daily for 7 days. Recommend repeat chest x-ray in 4-6 weeks by primary care physician to ensure infiltrate has resolved. Recommend ibuprofen 600 mg every 6 hours for pleuritic chest pain, suspected secondary to underlying pneumonia. Echocardiogram completed and will be reviewed prior to discharge. General: Alert, Oriented x3, Cooperative, No apparent distress HEENT: Atraumatic, PERRLA, EOMI, Normocephalic Oral: Moist Mucosa Neck: Supple, No JVD, Negative Carotid Bruits Lungs: Clear to auscultation, Normal air movement Cardiovascular: Regular rate, Regular Rhythm, Normal S1, Normal S2, No murmurs Abdomen: Bowel Sounds Present, Soft, Non Tender, Non-Distended Extremities: No clubbing, No cyanosis, No edema, Capillary Refill Less than 3 Seconds Skin: No rashes, No breakdown Musculoskeletal: No Tenderness to Palpation of Joints or Extremities Lymphatic: No Cervical, Supraclavicular, or Inguinal Adenopathy Neurological: Cranial nerves II-XII grossly intact, Neuro grossly intact Psych/Mental Status: Normal Affect, Appropriate Patient seen and examined prior to discharge. Physical assessment as noted above. Patient is stable for discharge with follow up recommendations as noted above. This patient was seen by RENA Ashley under the supervision of Dr. Abel. - Physical Exam Vital Signs Temp Pulse Resp BP Pulse Ox 97.7 F L 78 19 H 120/77 98 03/23/18 14:37 03/23/18 14:37 03/23/18 14:37 03/23/18 14:37 03/23/18 14:37 Oxygen Delivery Method Room Air Weight: 215 lb 9.793 oz Body Mass Index (BMI) 29.2 Intake and Output for Last 24 Hours 03/21/18 03/22/18 03/23/18 23:59 23:59 23:59 Intake Total 1593 / 1593 Output Total 0 / 0 Balance 1593 / 1593 Microbiology Past 72 Hours 03/23/18 11:25 Streptococcus pneumoniae Antigen (M - Final Urine, Clean Catch 03/23/18 11:25 Legionella Antigen - Final Urine, Clean Catch Laboratory Tests Past 24 Hrs 03/22/18 03/22/18 03/22/18 20:55 20:55 20:55 WBC 13.4 H RBC 5.36 Hgb 15.9 Hct 46.2 MCV 86.2 MCH 29.7 MCHC 34.4 RDW 12.9 RDW Differential 40.6 Plt Count 171 MPV 10.9 Immature Gran % (Auto) 0.100 Neut % (Auto) 84.4 H Lymph % (Auto) 6.9 L Carlisle % (Auto) 8.4 Eos % (Auto) 0.1 Baso % (Auto) 0.1 Absolute Neuts (auto) 11.3 H Absolute Lymphs (auto) 0.92 Total Counted Not Reportable ESR D-Dimer Quant (PE/DVT) < 0.27 L Sodium 134 L Potassium 4.1 Chloride 101 Carbon Dioxide 25.0 Anion Gap 8 BUN 17 Creatinine 1.16 Estim Creat Clear Calc 100.34 Est GFR (MDRD) Af Amer 93 Est GFR (MDRD) Non-Af 77 BUN/Creatinine Ratio 14.7 Glucose 118 H Calcium 8.7 Magnesium Troponin I < 0.015 03/22/18 03/22/18 03/23/18 20:55 20:55 05:37 WBC 10.2 RBC 5.27 Hgb 15.6 Hct 45.8 MCV 86.9 MCH 29.6 MCHC 34.1 RDW 13.2 RDW Differential 41.3 Plt Count 137 L MPV 11.8 Immature Gran % (Auto) 0.200 Neut % (Auto) 77.8 H Lymph % (Auto) 9.8 L Carl[place] % (Auto) 11.8 H Eos % (Auto) 0.2 Baso % (Auto) 0.2 Absolute Neuts (auto) 8.0 H Absolute Lymphs (auto) 1.00 Total Counted Not Reportable ESR 7 D-Dimer Quant (PE/DVT) Sodium Potassium Chloride Carbon Dioxide Anion Gap BUN Creatinine Estim Creat Clear Calc Est GFR (MDRD) Af Amer Est GFR (MDRD) Non-Af BUN/Creatinine Ratio Glucose Calcium Magnesium 1.9 Troponin I 03/23/18 03/23/18 05:37 05:37 WBC RBC Hgb Hct MCV MCH MCHC RDW RDW Differential Plt Count MPV Immature Gran % (Auto) Neut % (Auto) Lymph % (Auto) Carlisle % (Auto) Eos % (Auto) Baso % (Auto) Absolute Neuts (auto) Absolute Lymphs (auto) Total Counted ESR D-Dimer Quant (PE/DVT) Sodium 140 Potassium 4.1 Chloride 108 H Carbon Dioxide 25.0 Anion Gap 7 BUN 11 Creatinine 1.06 Estim Creat Clear Calc 108.79 Est GFR (MDRD) Af Amer 104 Est GFR (MDRD) Non-Af 86 BUN/Creatinine Ratio 10.4 Glucose 88 Calcium 7.8 L Magnesium Troponin I < 0.015 Discharge Diet: No Restrictions Discharge Activity: Return to Normal Activity Call your doctor if you observe: Shortness of breath, Dizziness, Fainting spells, Chest pain, Increased palpitations (irregular heartbeat) Home Medications: Medications to take at Discharge Amox/Clavulanate Tablet [Augmentin Tablet] 875 mg PO Q12H #14 tablet 03/23/18 Ibuprofen [Motrin] 600 mg PO Q6 #56 tablet 03/23/18 Following Prescrptions Were Given to Patient: Amox/Clavulanate Tablet [Augmentin Tablet] 875 mg PO Q12H #14 tablet Ibuprofen [Motrin] 600 mg PO Q6 #56 tablet Primary Care Physician: Care Physician,No Primary [Primary Care Provider] - Please follow up with your Primary Care Physician in: 1 Week Disposition: Home Minutes spent on discharge:: 35 Patient Condition:: Stable Medical Necessity - Tobacco Use Smoking Status: Never smoker Tobacco Use: Non-smoker Meaningful Use Info Meaningful Use Diagnoses (Choose all that apply): None applicable <ColtenSunny - Last Filed: 03/23/18 17:11> Hospital Course and Treatment Imaging Results: 03/23/18 08:19 Echo Complete [ECHO] Routine Summary of Care Provided: This patient was seen in conjunction with ELECTRICAL MANUFACTURING ENGINEERDamari. I have independently interviewed and examined the patient and reviewed pertinent history, examination findings, laboratory and plan of management. I have reviewed the note and agree with the documented findings with the few additional points. In brief, patient is admitted for left lateral chest pain, pleuritic in nature worse with deep breathing and coughing. He had flulike symptoms in early part of March with nasal congestion, postnasal drip but is resolved now. EKG findings with J-point elevation V1 V2 but no respiratory changes. Chest x-ray showed left-sided infiltrate in the superior segment of left lower lobe. Patient was seen by shipping manager and does not think chest pain is cardiac in nature. Echo reported as EF 65% with normal diastolic function. Mildly dilated RV. RVSP 17 mm H is mostly normal valvular anatomy. Echo showed no pericardial effusion. She has been discharged on Augmentin and Motrin 600 mg q. 6 hourly for pleurisy. Will need repeat chest x-ray in 4-6 weeks. Discharge medication reconciliation done. Discharge follow-up which was completed. Discharge medications and follow-up discussed with the patient. I have discussed my assessment with Damari POP and orders have been reviewed. [] Clinical Impression(s) from Imaging Studies Chest X-Ray 03/22/18 21:22 IMPRESSION: Left-sided infiltrate appearing to be in the superior segment of the left lower lobe. Streaky fibrotic or atelectatic changes of the left lung base. Close interval plain film follow-up is recommended to assess for resolution. - Physical Exam General: Alert, Oriented x3, Cooperative HEENT: Atraumatic, PERRLA, EOMI, Normocephalic Neck: Supple, No JVD, Negative Carotid Bruits Lungs: Clear to auscultation, Normal air movement, No rhonchi, No wheeze, No rales Cardiovascular: Regular rate, Regular Rhythm, Normal S1, Normal S2, No murmurs, - - No reproducible chest tenderness Abdomen: Bowel Sounds Present, Soft, Non Tender, Non-Distended Extremities: No edema, Capillary Refill Less than 3 Seconds Skin: No rashes, No breakdown Musculoskeletal: No Tenderness to Palpation of Joints or Extremities Neurological: Cranial nerves II-XII grossly intact, Deep Tendon Reflexes 2+/4 and Symmetrical, Neuro grossly intact, Motor Exam 5/5 strength throughout Psych/Mental Status: Normal Affect, Appropriate Vital Signs Temp Pulse Resp BP Pulse Ox 97.7 F L 76 19 H 120/77 98 03/23/18 14:37 03/23/18 15:35 03/23/18 14:37 03/23/18 14:37 03/23/18 14:37 Oxygen Delivery Method Room Air Weight: 215 lb 9.793 oz Body Mass Index (BMI) 29.2 Intake and Output for Last 24 Hours 03/21/18 03/22/18 03/23/18 23:59 23:59 23:59 Intake Total 1593 / 1593 Output Total 0 / 0 Balance 1593 / 1593 Microbiology Past 72 Hours 03/23/18 11:25 Streptococcus pneumoniae Antigen (M - Final Urine, Clean Catch 03/23/18 11:25 Legionella Antigen - Final Urine, Clean Catch Laboratory Tests Past 24 Hrs 03/22/18 03/22/18 03/22/18 20:55 20:55 20:55 WBC 13.4 H RBC 5.36 Hgb 15.9 Hct 46.2 MCV 86.2 MCH 29.7 MCHC 34.4 RDW 12.9 RDW Differential 40.6 Plt Count 171 MPV 10.9 Immature Gran % (Auto) 0.100 Neut % (Auto) 84.4 H Lymph % (Auto) 6.9 L Carl[place] % (Auto) 8.4 Eos % (Auto) 0.1 Baso % (Auto) 0.1 Absolute Neuts (auto) 11.3 H Absolute Lymphs (auto) 0.92 Total Counted Not Reportable ESR D-Dimer Quant (PE/DVT) < 0.27 L Sodium 134 L Potassium 4.1 Chloride 101 Carbon Dioxide 25.0 Anion Gap 8 BUN 17 Creatinine 1.16 Estim Creat Clear Calc 100.34 Est GFR (MDRD) Af Amer 93 Est GFR (MDRD) Non-Af 77 BUN/Creatinine Ratio 14.7 Glucose 118 H Calcium 8.7 Magnesium Troponin I < 0.015 03/22/18 03/22/18 03/23/18 20:55 20:55 05:37 WBC 10.2 RBC 5.27 Hgb 15.6 Hct 45.8 MCV 86.9 MCH 29.6 MCHC 34.1 RDW 13.2 RDW Differential 41.3 Plt Count 137 L MPV 11.8 Immature Gran % (Auto) 0.200 Neut % (Auto) 77.8 H Lymph % (Auto) 9.8 L Carl[place] % (Auto) 11.8 H Eos % (Auto) 0.2 Baso % (Auto) 0.2 Absolute Neuts (auto) 8.0 H Absolute Lymphs (auto) 1.00 Total Counted Not Reportable ESR 7 D-Dimer Quant (PE/DVT) Sodium Potassium Chloride Carbon Dioxide Anion Gap BUN Creatinine Estim Creat Clear Calc Est GFR (MDRD) Af Amer Est GFR (MDRD) Non-Af BUN/Creatinine Ratio Glucose Calcium Magnesium 1.9 Troponin I 03/23/18 03/23/18 05:37 05:37 WBC RBC Hgb Hct MCV MCH MCHC RDW RDW Differential Plt Count MPV Immature Gran % (Auto) Neut % (Auto) Lymph % (Auto) Carl[place] % (Auto) Eos % (Auto) Baso % (Auto) Absolute Neuts (auto) Absolute Lymphs (auto) Total Counted ESR D-Dimer Quant (PE/DVT) Sodium 140 Potassium 4.1 Chloride 108 H Carbon Dioxide 25.0 Anion Gap 7 BUN 11 Creatinine 1.06 Estim Creat Clear Calc 108.79 Est GFR (MDRD) Af Amer 104 Est GFR (MDRD) Non-Af 86 BUN/Creatinine Ratio 10.4 Glucose 88 Calcium 7.8 L Magnesium Troponin I < 0.015 Code Visit OBSV E&M: 39176 Observation care discharge
== END 2018-03-23 15:51 | disposition home or self-care (01) ==
LOC: ED 22:06 → PCU 03-23 00:34
PROVIDERS: Internal Medicine Cardiovascular Disease; Admitting Provider Student in an Organized Health Care Education/Training Program; Emergency Provider Emergency Medicine; Referring Provider Student in an Organized Health Care Education/Training Program; Visit Provider Internal Medicine
DX: J18.9 Pneumonia, unspecified organism (principal); R94.31 Abnormal electrocardiogram [ECG] [EKG]; I45.19 Other right bundle-branch block; E78.5 Hyperlipidemia, unspecified; I08.1 Rheumatic disorders of both mitral and tricuspid valves
CPT/HCPCS: 36415; 71046; 80048; 83735; 84484; 85025; 85379; 85652; 87449; 93005; 93306; 94640; 96361; 96365; 96372; 96375; 96376; 97802; 99218; 99283; J7030; J7050; A4216; G0378; J2405

== ENCOUNTER 2019-02-08 14:59 | Emergency (ER) | payer BC, SELFPAY ==
[2018-03-23 01:01] VITALS: BMI 29.2
[2019-02-08 15:00] VITALS: BP 149/107; PULSE 69; RESP 14; TEMP 36.1; O2SAT 100; BMI 28.8
--- NOTE | 2019-02-08 15:32 | ED.DCSUM_ITS ---
- ER Visit Summary Date of Service: 02/08/19 Chief Complaint: Abdominal pain History of Present Illness: The patient is a 33 M who presents with abdominal pain that is been getting worse since yesterday evening. Patient states he ate a large meal yesterday and his pain is gradually gotten worse since that time. Patient states he had one episode of nausea and vomiting last night. Patient denies any hematemesis or coffee-ground emesis. Patient states his pain is been constant. Patient describes as diffuse and aching. Patient states he feels better when he flexes forward. Patient denies any diarrhea. Patient states he feels constipated. Patient states he did have a couple small stools which were darker than usual but not black. Patient denies any hematochezia. Patient denies any dysuria or hematuria. Physical Examination: Vital signs are stable. Patient is afebrile. Patient is in no acute distress. Oral mucosa is pink and moist. Neck is supple. Trachea is midline. There is no JVD. Heart was regular rate and rhythm. Lungs are clear and equal bilaterally. Abdomen is soft. Bowel sounds are normal. There is diffuse tenderness. There is no rebound or guarding noted. Cranial nerves II through XII are intact. There are no focal motor or sensory deficits noted. Test Results: CBC shows a hemoglobin of 18.3. Comprehensive metabolic profile is essentially within normal limits. Acute abdominal x-rays were obtained. There is no evidence of bowel obstruction, free air, or ileus. Emergency Department Course and Treatment: Patient was given IV fluids, morphine, and Zofran here. Patient was still having some cramping on reevaluation. Patient was given a dose of p.o. Bentyl. Patient was given a prescription for a short course of Bentyl. Patient was instructed to follow-up with his primary care physician in 5 to 7 days. Patient was instructed to return if worse in any way. Patient understood and was agreeable with the plan. All questions were answered. Disposition: Discharge home Impression: Abdominal pain This note was generated with [employer]AM[employer] dictation software. It may contain incorrect words, spelling, and punctuation that were not noted in review of the chart prior to signing ED Disposition - Plan for ED Patient: Disposition: Home or Assisted Living Diagnosis: Abdominal pain in male Instructions: ABDOMINAL PAIN, Unkown Cause, (Male) Prescriptions: Dicyclomine HCl [Bentyl] 10 mg PO ACHS PRN #12 cap PRN Reason: Gi Cramping Prescription Printed Referrals: Care Physician,No Primary [Primary Care Provider] - Rickie Martin III, MD [STAFF PHYSICIAN] - 3-5 Days
[2019-02-08] MEDS: 0.9% Normal Saline 1,000 ML 1000 ML IV (15:38)
[2019-02-08] MEDS: Morphine 4 MG/ML Syringe IV (15:44)
[2019-02-08 15:57] LABS: Absolute Neutrophil Count 4.5 X10^3/uL (2.0-7.7); Basophil# 0.03 X10^3/uL; Basophil% 0.4 % (0-1); Eosinophil# 0.06 X10^3/uL; Eosinophils% 0.9 % (0-5); Hematocrit 51.8 % (40-54); Mean Corp Hgb Conc 35.3 g/dL (32-36); Mean Corpuscular Hgb 30.1 pg (27.0-32.0); Mean Corpuscular Volume 85.3 fL (80-94); Mean Platelet Vol. 10.7 fl (6.2-12.0); Monocyte# 0.66 X10^3/uL; Monocyte% 9.7 % (0-10); NRBC Flagged by Analyzer 0 % (0-5); Neutrophil # 4.54 X10^3/uL (2.7-7.7); Neutrophil % 66.7 % (47-70); Platelet Count 246 K/mm3 (150-450); RBC Distribution Width CV 11.9 % (11.6-14.6); RBC Distribution Width SD 36.6 fl (35.1-43.9); Red Blood Count 6.07 M/mm3 (4.6-6.2); White Blood Count 6.8 K/mm3 (4.4-11.0)
--- NOTE | 2019-02-08 16:10 | RAD_ITS ---
STUDY: X-RAY - ACUTE ABDOMINAL SERIES REASON FOR EXAM: Male, 33 years old. Abdominal pain, constipation. TECHNIQUE: Single view of the chest. Supine, and erect view(s) of the abdomen were obtained. COMPARISON: 03/22/2018 FINDINGS: The lungs are clear and expanded. Normal size heart. Normal mediastinum and jorje. Normal visualized pulmonary arteries. Normal visualized aortic arch and descending thoracic aorta. There is a non-specific bowel gas pattern. The soft tissue structures of the abdomen and pelvis are unremarkable. Mild levoscoliosis of the lumbar spine. RAD/Acute Abdomen Inc Chest IMPRESSION: Normal x-ray examination of the chest, abdomen, and pelvis. Electronically Signed: Justus Mathias MD at 16:29 EST Tel , Service support ,
[2019-02-08 16:11] LABS: Hemoglobin 18.3 g/dL (13.0-16.5)
[2019-02-08 16:17] LABS: ALB/GLOB Ratio 1.2 RATIO (0.9-2.4); AST(SGOT) 28 U/L (15-37); Alanine Aminotransfer ALT/SGPT 71 U/L (16-61); Albumin, Serum 4.5 g/dL (3.2-5.0); Alkaline Phosphatase 113 U/L (45-117); Anion Gap 8 (5-15); BUN 11 mg/dL (7-18); BUN/Creat Ratio 9.7 RATIO (10-20); Calcium,Total 9.3 mg/dL (8.5-10.1); Chloride 104 mmol/L (98-107); Creatinine, Serum 1.13 mg/dL (0.70-1.30); EST Glomerular Filtration Rate 79 mL/min (>60); Est Glom Filt Rate - Afr Amer 96 mL/min (>60); Estimated Creatinine Clearance 105.08 ml/min; Globulin 3.8 g/dL (2.2-4.2); Glucose 112 mg/dL (74-106); Lipase 118 U/L (73-393); Potassium 3.6 mmol/L (3.5-5.1); Protein, Total 8.3 g/dL (6.4-8.2); Sodium Level 139 mmol/L (136-145)
[2019-02-08] MEDS: Ondansetron 4 MG/2 ML Vial IV (17:04)
[2019-02-08 17:06] VITALS: BP 145/88; PULSE 89; RESP 17; O2SAT 97
[2019-02-08] MEDS: Dicyclomine 10 MG Capsule 20 MG PO (17:10)
[2019-02-09 13:54] LABS: Pathologist Review Reviewed
== END 2019-02-08 17:16 | disposition home or self-care (01) ==
PROVIDERS: Emergency Provider Emergency Medicine
DX: R10.84 Generalized abdominal pain (principal); R11.2 Nausea with vomiting, unspecified; K59.00 Constipation, unspecified; Z90.49 Acquired absence of other specified parts of digestive tract
CPT/HCPCS: 74022; 80053; 83690; 85025; 96361; 96374; 96375; 99284; A4216; J2405